=== PATIENT | female | born 1960 | race Caucasian/White ===

== ENCOUNTER → 2020-08-05 20:14 | Outpatient (CLI) | payer OTHER | END | disposition home or self-care (01) | LOC: D.MAMMO 10:00 | PROVIDERS: ATTEND Family Medicine | DX: Z12.31 Encounter for screening mammogram for malignant neoplasm of breast (principal) ==

== ENCOUNTER → 2021-01-11 09:10 | Outpatient (CLI) | payer OTHER | END | disposition home or self-care (01) | LOC: D.US 09:00 | PROVIDERS: ATTEND Family Medicine | DX: R10.11 Right upper quadrant pain (principal) ==